=== PATIENT | male | born 1965 | race Caucasian/White ===

== ENCOUNTER 2018-04-05 16:15 | Observation (INO) | payer BC, OTHER ==
[~2018-04-05] VITALS: Ht 182.9 cm; Wt 158.6 kg
[2018-04-05 16:55] LABS: BASOPHILS % (AUTO) 0 % (0-10); EOSINOPHILS # (AUTO) 0.5 10^3/uL (0.0-0.3); EOSINOPHILS % (AUTO) 5 % (0-10); HEMATOCRIT 50 % (40-54); HEMOGLOBIN 16.7 G/DL (13.3-17.7); LYMPHOCYTES # (AUTO) 2.2 X 10^3 (1.0-4.0); LYMPHOCYTES % (AUTO) 26 % (12-44); MEAN CORPUSCULAR HEMOGLOBIN 31 PG (25-34); MEAN CORPUSCULAR HGB CONC 34 G/DL (32-36); MEAN CORPUSCULAR VOLUME 91 FL (80-99); MEAN PLATELET VOLUME 11.3 FL (7.4-10.4); MONOCYTES # (AUTO) 0.7 X 10^3 (0.0-1.0); MONOCYTES % (AUTO) 8 % (0-12); NEUTROPHILS # (AUTO) 5.2 X 10^3 (1.8-7.8); NEUTROPHILS % (AUTO) 61 % (42-75); PLATELET COUNT 250 10^3/uL (130-400); RED BLOOD COUNT 5.46 10^6/uL (4.35-5.85); RED CELL DISTRIBUTION WIDTH 15.3 % (10.0-14.5); WHITE BLOOD COUNT 8.5 10^3/uL (4.3-11.0)
--- NOTE | 2018-04-05 16:55 | ED Cough/URI ---
General Chief Complaint: Respiratory Problems Stated Complaint: LOW OXYGEN Source: patient Exam Limitations: no limitations History of Present Illness Date Seen by Provider: April 05, 2018 Time Seen by Provider: 16:52 Initial Comments To ER per private vehicle from [facility] or with reports of shortness of breath. This is been ongoing for several months, he smokes 3-4 packs of cigarettes per day. 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 Worsening shortness of breath over the past few days. Presented to [facility] where he was found to be 85% on room air. Timing/Duration: constant Severity/Quality: moderate Associated Symptoms: cough, shortness of breath, wheezing Allergies and Home Medications Allergies Coded Allergies: No Known Drug Allergies (Unverified , 04/05/18) Patient Home Medication List Home Medication List Reviewed: Yes Review of Systems Constitutional: see HPI EENTM: see HPI Respiratory: see HPI, cough, short of breath Cardiovascular: see HPI; No chest pain Genitourinary: no symptoms reported Skin: no symptoms reported Psychiatric/Neurological: No Symptoms Reported Past Oeyplbn-Uwplnd-Bjqcqo Hx Patient Social History Recent Foreign Travel: No Contact w/Someone Who Travel: No Physical Exam Vital Signs Vital Signs - First Documented 04/05/18 04/05/18 16:37 17:05 Temp 98.1 Pulse 106 Resp 20 B/P (MAP) 108/79 (89) Pulse Ox 93 O2 Delivery Nasal Cannula O2 Flow Rate 3.00 Capillary Refill : General Appearance: WD/WN, no apparent distress, obese Eyes: Bilateral Eye Normal Inspection, Bilateral Eye PERRL, Bilateral Eye EOMI HEENT: PERRL/EOMI, normal ENT inspection Neck: non-tender, full range of motion Respiratory: no respiratory distress, no accessory muscle use, decreased breath sounds Cardiovascular: regular rate, rhythm, no murmur Gastrointestinal: normal bowel sounds, non tender, soft Extremities: normal range of motion, non-tender Neurologic/Psychiatric: alert, normal mood/affect, oriented x 3 Skin: normal color, warm/dry Progress/Results/Core Measures Suspected Sepsis SIRS Temperature: Pulse: Respiratory Rate: Laboratory Tests 04/05/18 16:30: White Blood Count 8.5 Blood Pressure / Mean: Laboratory Tests 04/05/18 16:30: Creatinine 0.86, Platelet Count 250, Total Bilirubin 0.6 Results/Orders Lab Results Laboratory Tests Test 04/05/18 16:30 Range/Units White Blood Count 8.5 4.3-11.0 10^3/uL Red Blood Count 5.46 4.35-5.85 10^6/uL Hemoglobin 16.7 13.3-17.7 G/DL Hematocrit 50 40-54 % Mean Corpuscular Volume 91 80-99 FL Mean Corpuscular Hemoglobin 31 25-34 PG Mean Corpuscular Hemoglobin Concent 34 32-36 G/DL Red Cell Distribution Width 15.3 H 10.0-14.5 % Platelet Count 250 130-400 10^3/uL Mean Platelet Volume 11.3 H 7.4-10.4 FL Neutrophils (%) (Auto) 61 42-75 % Lymphocytes (%) (Auto) 26 12-44 % Monocytes (%) (Auto) 8 0-12 % Eosinophils (%) (Auto) 5 0-10 % Basophils (%) (Auto) 0 0-10 % Neutrophils # (Auto) 5.2 1.8-7.8 X 10^3 Lymphocytes # (Auto) 2.2 1.0-4.0 X 10^3 Monocytes # (Auto) 0.7 0.0-1.0 X 10^3 Eosinophils # (Auto) 0.5 H 0.0-0.3 10^3/uL Basophils # (Auto) 0.0 0.0-0.1 10^3/uL Sodium Level 139 135-145 MMOL/L Potassium Level 4.4 3.6-5.0 MMOL/L Chloride Level 101 98-107 MMOL/L Carbon Dioxide Level 26 21-32 MMOL/L Anion Gap 12 5-14 MMOL/L Blood Urea Nitrogen 13 7-18 MG/DL Creatinine 0.86 0.60-1.30 MG/DL Estimat Glomerular Filtration Rate > 60 BUN/Creatinine Ratio 15 Glucose Level 123 H 70-105 MG/DL Calcium Level 10.0 8.5-10.1 MG/DL Total Bilirubin 0.6 0.1-1.0 MG/DL Aspartate Amino Transf (AST/SGOT) 19 5-34 U/L Alanine Aminotransferase (ALT/SGPT) 25 0-55 U/L Alkaline Phosphatase 63 40-136 U/L Total Protein 8.1 6.4-8.2 GM/DL Albumin 4.4 3.2-4.5 GM/DL My Orders Orders - ROB SIMS CONCESSION WORKER Cbc With Automated Diff (04/05/18 16:47) Comprehensive Metabolic Panel (04/05/18 16:47) Ua Culture If Indicated (04/05/18 16:47) Iv Heplock-Insert (Order) (04/05/18 16:47) Chest 1 View, Ap/Pa Only (04/05/18 16:47) Ct Chest W (04/05/18 16:47) Albuterol/Ipra Inhalation Soln (Duoneb I (04/05/18 17:00) Svn Small Volume Nebulizer (04/05/18 16:47) Iohexol Injection (Omnipaque 350 Mg/Ml 1 (04/05/18 17:15) Ns (Ivpb) (Sodium Chloride 0.9% Ivpb Bag (04/05/18 17:15) General/Regular (04/05/18 Dinner) Albuterol/Ipra Inhalation Soln (Duoneb I (04/05/18 18:15) Svn Small Volume Nebulizer (04/05/18 18:14) Medications Given in ED Current Medications Medications Dose Ordered Sig/Josue Route Start Time Stop Time Status Last Admin Dose Admin Albuterol/ Ipratropium 3 ml ONCE ONCE INH 04/05/18 17:00 04/05/18 17:01 DC 04/05/18 17:01 3 ML Albuterol/ Ipratropium 3 ml ONCE ONCE INH 04/05/18 18:15 04/05/18 18:16 DC 04/05/18 18:31 3 ML Iohexol 75 ml ONCE ONCE IV 04/05/18 17:15 04/05/18 17:20 DC 04/05/18 17:32 75 ML Sodium Chloride 100 ml ONCE ONCE IV 04/05/18 17:15 04/05/18 17:20 DC 04/05/18 17:32 80 ML Vital Signs/I&O 04/05/18 04/05/18 16:37 17:05 Temp 98.1 Pulse 106 Resp 20 B/P (MAP) 108/79 (89) Pulse Ox 93 93 O2 Delivery Nasal Cannula O2 Flow Rate 3.00 Capillary Refill : Departure Communication (Admissions) Time/Spoke to Admitting Phy: 18:[address] Coyle. We'll admit, steroids, breathing treatments, home O2 qualification study 1835- oxygen turned off, saturation dropped to 86%. Oxygen was turned back on. He is afebrile without white count or left shift. We'll treat for a COPD exacerbation. Impression Primary Impression: COPD exacerbation Disposition: HOME, SELF-CARE Condition: Stable Admissions Decision to Admit Reason: Admit from ER (General) Decision to Admit/Date: April 05, 2018 Time/Decision to Admit Time: 18:38 Departure-Patient Inst. Referrals: NO,LOCAL PHYSICIAN (PCP) Primary Care Physician ROB SIMS APRN April 05, 2018 16:55
[2018-04-05] MEDS ORDERED: RT-ALBUTEROL/IPRATROPIUM 3 ML (DUONEB) VIAL INH ONE ×2 (17:00→18:15)
[2018-04-05 17:09] LABS: ALANINE AMINOTRANSFERASE 25 U/L (0-55); ALBUMIN 4.4 GM/DL (3.2-4.5); ALKALINE PHOSPHATASE 63 U/L (40-136); BILIRUBIN,TOTAL 0.6 MG/DL (0.1-1.0); BUN/CREATININE RATIO 15; CARBON DIOXIDE 26 MMOL/L (21-32); CHLORIDE 101 MMOL/L (98-107); CREATININE SERUM 0.86 MG/DL (0.60-1.30); GFR ESTIMATED > 60; GLUCOSE 123 MG/DL (70-105); POTASSIUM 4.4 MMOL/L (3.6-5.0); SODIUM 139 MMOL/L (135-145); TOTAL PROTEIN 8.1 GM/DL (6.4-8.2)
[2018-04-05] MEDS ORDERED: NS 100 ML (IVPB) BAG IV ONE (17:15)
[2018-04-05] MEDS ORDERED: IOHEXOL 350 MG/ML 100 ML (OMNIPAQUE 350) VIAL IV ONE (17:15)
--- NOTE | 2018-04-05 17:29 | Diagnostic Imaging Report ---
INDICATION: Short of breath. FINDINGS: Portable chest shows the heart size and vascularity to be upper normal. The lungs are clear other than discoid atelectasis on the right. There is no effusion or pneumothorax. IMPRESSION: Right perihilar discoid atelectasis. Dictated by: Dictated on workstation # [id number]
--- NOTE | 2018-04-05 17:44 | Diagnostic Imaging Report ---
PROCEDURE: CT chest with contrast only. TECHNIQUE: Multiple contiguous axial images were obtained through the chest after administration of intravenous contrast. INDICATION: Short of air. FINDINGS: There is right perihilar discoid atelectasis. There is a 1 cm calcified nodule in the right lung consistent with old granulomatous disease. No suspicious mass or infiltrate is seen. There is no effusion or pneumothorax. There is no mediastinal mass or hemorrhage. There may be a small hiatal hernia present. There is no acute bony abnormality. IMPRESSION: Right perihilar discoid atelectasis. Dictated by: Dictated on workstation # [id number]
[2018-04-05 20:05] VITALS: BP 167/84
[2018-04-05 20:10] LABS: BILIRUBIN,URINE NEGATIVE (NEGATIVE); CLARITY,URINE CLEAR; COLOR,URINE YELLOW; GLUCOSE, URINE (UA) NEGATIVE (NEGATIVE); KETONES,URINE NEGATIVE (NEGATIVE); LEUKOCYTE ESTERASE ,URINE NEGATIVE (NEGATIVE); NITRITE,URINE NEGATIVE (NEGATIVE); PH,URINE 5 (5-9); PROTEIN,URINE 1+ (NEGATIVE); UROBILINOGEN,URINE NORMAL (NORMAL)
[2018-04-05 20:16] LABS: BACTERIA,URINE NEGATIVE /HPF; SQUAMOUS EPITHELIAL CELL,UR RARE /HPF
[2018-04-05] MEDS ORDERED: CATHETER FLUSH 10 ML SYR IV PRN (20:30)
[2018-04-05 21:34] VITALS: BP 108/79
[2018-04-05] MEDS ORDERED: RT-ALBUTEROL/IPRATROPIUM 3 ML (DUONEB) VIAL INH PRN (21:45)
[2018-04-05] MEDS: NICOTINE 21 MG (NICODERM) PATCH TD SCH (21:52)
[2018-04-05] MEDS: methylPREDNISolone 125 MG (Solu-MEDROL) VIAL IV SCH (21:52)
[2018-04-05] MEDS: CATHETER FLUSH 10 ML SYR IV SCH (21:52)
[2018-04-05] MEDS ORDERED: RT-ALBUTEROL/IPRATROPIUM 3 ML (DUONEB) VIAL ONE (22:44)
[2018-04-05] MEDS: RT-ALBUTEROL/IPRATROPIUM 3 ML (DUONEB) VIAL INH SCH (22:57)
[2018-04-06] VITALS: BP 131/66
[2018-04-06] MEDS: RT-ALBUTEROL/IPRATROPIUM 3 ML (DUONEB) VIAL INH SCH ×6 (01:44→22:09)
[2018-04-06 04:00] VITALS: BP 145/68
[2018-04-06] MEDS: methylPREDNISolone 125 MG (Solu-MEDROL) VIAL IV SCH (05:42)
[2018-04-06] MEDS: CATHETER FLUSH 10 ML SYR IV SCH ×3 (05:43→21:46)
[2018-04-06 08:00] VITALS: BP 141/85
--- NOTE | 2018-04-06 09:00 | Pulmonary Consultation ---
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 He was found to have Sp02 of 85% on RA. His last Sp02 was 91% on 3 NC. He states that he is now dizzy and appears to be hyperventilating. Pt is not known to any equalizer operator and does not have a recent PFT. He has never has PSG and has no known BLANK. He has only been coughing up white sputum. No f/NS/C. Allergies and Home Medications Allergies Coded Allergies: No Known Drug Allergies (Unverified , 04/05/18) Home Medications Amlodipine Besylate 5 Mg Tablet, 5 MG PO DAILY Prescribed by: ALAINA TREVIÑO on 04/07/18 1010 Aspirin/Acetaminophen/Caffeine 1 Each Tablet, 2 TAB PO DAILY, (Reported) Fluticasone Propionate 16 Gm [place].susp, 2 SPRAY NS DAILY Prescribed by: ALAINA TREVIÑO on 04/07/18 1010 Fluticasone/Salmeterol 12 Gm Hfa.aer.ad, 2 PUFF IH BID@08,20 Prescribed by: ALAINA TREVIÑO on 04/07/18 1010 Ipratropium/Albuterol Sulfate 3 Ml Ampul.neb, 3 ML INH RTQ4HR Prescribed by: ALAINA TREVIÑO on 04/07/18 1010 Loratadine 10 Mg Tablet, 10 MG PO DAILY Prescribed by: ALAINA TREVIÑO on 04/07/18 1010 Montelukast Sodium 10 Mg Tablet, 10 MG PO HS Prescribed by: ALAINA TREVIÑO on 04/07/18 1010 Nicotine 1 Each Patch.td24, 21 MG TD DAILY Prescribed by: ALAINA TREVIÑO on 04/07/18 1010 Nystatin 15 Gm Cream..g., 0 GM TP TID Prescribed by: ALAINA TREVIÑO on 04/07/18 1010 Prednisone 10 Mg Tab.ds.pk, 10 MG PO DAILY Take 6 tabs(60mg)daily,decrease by 1 tab(10MG)daily. Prescribed by: ALAINA TREVIÑO on 04/07/18 1010 Varenicline Tartrate 0.5 Mg Tablet, 0.5 MG PO DAILY 1 po daily for days 1-3 then 1 po BID for days 4-7 then change to 1mg BID Prescribed by: ALAINA TREVIÑO on 04/07/18 1010 Varenicline Tartrate 1 Each Tab.ds.pk, 1 EACH PO BID Prescribed by: ALAINA TREVIÑO on 04/07/18 1010 Past Xiegheo-Ingzcb-Vjtfky Hx Patient Social History Alcohol Use: Denies Use Recreational Drug Use: No Smoking Status: Current Everyday Smoker Type Used: Cigarettes Recent Foreign Travel: No Contact w/Someone Who Travel: No Recent Infectious Disease Expo: No Recent Hopitalizations: No Seasonal Allergies Seasonal Allergies: No Past Medical History Surgeries: Yes Respiratory: Yes COPD Currently Using CPAP: No Currently Using BIPAP: No Cardiac: Yes (?murmur) Neurological: No Sexually Transmitted Disease: No HIV/AIDS: No Genitourinary: No Gastrointestinal: No 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 Endocrine: No HEENT: No Cancer: No Psychosocial: No Integumentary: No Blood Disorders: No Review of Systems Time Seen by Provider: 04:40 Constitutional: Sweats, Weakness; No: Fever, Chills, Malaise, Other Eyes: No: Pain, Vision change, Conjunctivae inflammation, Eyelid inflammation, Other, Redness ENT: Nose congestion; No: Ear pain, Ear discharge, Nose pain, Nose discharge, Mouth pain, Mouth swelling, Throat pain, Throat swelling, Other Respiratory: Cough, Dry, Shortness of breath, SOB with excertion, Wheezing; No : Hemoptysis, Pleuritic Pain, Sputum Cardiovascular: Palpitations, Orthopnea, Paroxysmal Noc. Dyspnea, Lt Headedness Gastrointestinal: Constipation; No: Nausea, Vomiting, Abdominal Pain, Diarrhea , Melena, Hematochezia, Other Genitourinary: No Dysuria, No Frequency, No Incontinence, No Hematuria, No Retention, No Other Musculoskeletal: back pain; No: other, neck pain, shoulder pain, arm pain, hand pain, leg pain, foot pain Neurological: Weakness Exam Exam Vital Signs Date Time Temp Pulse Resp B/P (MAP) Pulse Ox O2 Delivery O2 Flow Rate FiO2 04/06/18 08:00 98.2 109 22 141/85 (103) 91 Nasal Cannula 2.00 04/06/18 07:00 124 04/06/18 06:39 90 Nasal Cannula 3.00 04/06/18 04:00 97.8 95 17 145/68 (93) 91 Nasal Cannula 2.00 04/06/18 01:45 88 Room Air 04/06/18 00:00 96.2 96 18 131/66 (87) 90 Nasal Cannula 2.00 04/05/18 23:00 92 04/05/18 22:57 89 Nasal Cannula 1.00 04/05/18 21:34 90 89 04/05/18 20:05 97.0 94 20 167/84 (111) 92 Nasal Cannula 2.00 04/05/18 20:03 Nasal Cannula 2.00 04/05/18 19:58 92 20 118/92 89 Room Air 2.00 04/05/18 18:31 89 Room Air 04/05/18 17:05 93 Nasal Cannula 3.00 04/05/18 16:37 98.1 106 20 108/79 (89) 93 I & O 04/06/18 07:00 Intake Total 500 ml Output Total 1000 ml Balance -500 ml General Appearance: Anxious, Mild Distress, Obese HEENT: PERRL/EOMI, Pharynx Normal Neck: Full Range of Motion, Normal Inspection, Non Tender, Supple Respiratory: Accessory Muscle Use, Crackles, Decreased Breath Sounds Cardiovascular: Regular Rate, Rhythm, No Edema, No Gallop Capillary Refill: Less Than 3 Seconds Gastrointestinal: normal bowel sounds, non tender, soft Extremity: Normal Capillary Refill, Normal Inspection, Non Tender, No Calf Tenderness Neurologic/Psychiatric: Alert, Oriented x3 Skin: Normal Color, Warm/Dry Lymphatic: No Adenopathy Results Lab Laboratory Tests 04/05/18 16:30 Assessment/Plan Assessment/Plan Acute on chronic respiratory failure -Pt would benefit from vent to mask COPDAE -Change solumedrol to prednisone 40mg daily SVNS, Advair -Consult SW -Check ABG R/o carbonmonoxide poisoning -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
[2018-04-06] MEDS ORDERED: ASPI-789 PO (09:03)
[2018-04-06] MEDS: NICOTINE 21 MG (NICODERM) PATCH TD SCH ×2 (09:05→20:17)
[2018-04-06] MEDS: NICOTINE PATCH REMOVAL TP SCH (09:05)
--- NOTE | 2018-04-06 09:21 | History & Physical-Hospitalist ---
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 He doesn't take any medications and he doesn't like doctors. I spoke with Dr. Mccray who has seen him in consultation will order an ABG to evaluate for obesity hypoventilation syndrome and we'll maintain oxygen and do a formal home O2 evaluation and preparation for discharge tomorrow. IV steroids he reports are not really helping him much and he reports that the nebulizer treatments are really helping him. Smoking cessation was discussed. Elevated blood pressure was noted so started treatment with amlodipine 5 mg daily. He denies any chest pain at this current time and no fever. He's been smoking even more recently due to marriage stress and separation and impending divorce. He also reports that he thinks there is exhaust entering his truck so will check carboxyhemoglobin. Date Seen 04/06/18 Time Seen by Provider: 08:30 Attending Physician Ginny Coyle DO PCP No,Local Physician Referring Physician Date of Admission April 05, 2018 at 18:50 Home Medications & Allergies Home Medications Reviewed patient Home Medication Reconciliation performed by pharmacy medication reconciliations conservation technician and/or nursing. Patients Allergies have been reviewed. 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) Alcohol Use: Denies Use Recreational Drug Use: No Smoking Status: Current Everyday Smoker Type Used: Cigarettes Physical Abuse Screen: No Sexual Abuse: No Recent Foreign Travel: No Contact w/other who traveled: No Recent Hopitalizations: No Recent Infectious Disease Expo: No Seasonal Allergies Seasonal Allergies: No Past Medical History Currently Using CPAP: No Currently Using BIPAP: No Sexually Transmitted Disease: No HIV/AIDS: No Musculoskeletal: Amputee History of Blood Disorders: No Family History Hypertension Review of Systems Constitutional: see HPI, dizziness EENTM: no symptoms reported Respiratory: dyspnea on exertion Cardiovascular: no symptoms reported Gastrointestinal: no symptoms reported Genitourinary: no symptoms reported Musculoskeletal: no symptoms reported Skin: no symptoms reported Psychiatric/Neurological: No Symptoms Reported All Other Systems Reviewed Negative Unless Noted: Yes Physical Exam Physical Exam Vital Signs Vital Signs - First Documented 04/05/18 04/05/18 16:37 17:05 Temp 98.1 Pulse 106 Resp 20 B/P (MAP) 108/79 (89) Pulse Ox 93 O2 Delivery Nasal Cannula O2 Flow Rate 3.00 Capillary Refill : Less Than 3 Seconds General Appearance: No Apparent Distress, WD/WN, Chronically ill, Obese Eyes: Bilateral Eye Normal Inspection, Bilateral Eye PERRL HEENT: PERRL/EOMI, Normal ENT Inspection, Pharynx Normal Neck: Full Range of Motion, Normal Inspection, Non Tender, Supple, Carotid Bruit Respiratory: Chest Non Tender, No Accessory Muscle Use, No Respiratory Distress , Decreased Breath Sounds, Wheezing Cardiovascular: Regular Rate, Rhythm, No Edema, No Gallop, No JVD, No Murmur, Normal Peripheral Pulses Gastrointestinal: Normal Bowel Sounds, No Organomegaly, No Pulsatile Mass, Non Tender, Soft Back: Normal Inspection, No CVA Tenderness, No Vertebral Tenderness Extremity: Normal Capillary Refill, Normal Inspection, Normal Range of Motion, Non Tender, No Calf Tenderness, No Pedal Edema Neurologic/Psychiatric: Alert, Oriented x3, No Motor/Sensory Deficits, Normal Mood/Affect Skin: Normal Color, Warm/Dry Lymphatic: No Adenopathy Results Results/Procedures Labs Laboratory Tests 04/05/18 16:30 Patient resulted labs reviewed. Assessment/Plan Admission Diagnosis Assessment: AECOPD Plan: IV steroids Nebs Home O2 evaluation Check CO level Nebs Sleep study arrangements Add [facility] Admission Status: Observation Diagnosis/Problems Diagnosis/Problems (1) COPD exacerbation Status: Acute Assessment & Plan: IV steroids and O2 and check ABG (2) Carbon monoxide exposure Status: Acute Assessment & Plan: Check carboxyhemoglobin (3) Obesity hypoventilation syndrome Status: Chronic Assessment & Plan: Check ABG for lilu-nr-rbqw arrangements (4) Smoker Status: Chronic Assessment & Plan: Smoking cessation discussed (5) Hypertension Status: Chronic Qualifiers: Hypertension type: essential hypertension Qualified Codes: I10 - Essential (primary) hypertension (6) Anxiety Status: Chronic Clinical Quality Measures DVT/VTE Risk/Contraindication: Risk Factor Score Per Nursin RFS Level Per Nursing on Admit: 3=High GINNY COYLE DO April 06, 2018 09:21
[2018-04-06] MEDS ORDERED: amLODIPine 5 MG (NORVASC) TAB PO NR (09:30)
[2018-04-06 10:55] LABS: ABG BASE EXCESS 5.8 MMOL/L (-2.5-2.5); ABG OXYGEN SATURATION 92 % (94-100); ABG PCO2 57 MMHG (35-45); ABG PH 7.36 (7.37-7.43); ABG PO2 64 MMHG (79-93); ABG TCO2 32.9 MMOL/L (21.0-31.0)
[2018-04-06 10:56] LABS: PATIENT TEMP 98.2
[2018-04-06 12:00] VITALS: BP 141/74
[2018-04-06 16:00] VITALS: BP 121/79
[2018-04-06] MEDS: RT-ADVAIR HFA 115/21 MCG PER PUFF IH SCH (18:14)
[2018-04-06] MEDS: NYSTATIN CREAM (MYCOSTATIN) 30 GM TUBE TP SCH (20:16)
[2018-04-06] MEDS ORDERED: MONTELUKAST 10 MG (SINGULAIR) TAB PO SCH (21:00)
[2018-04-07] VITALS: BP 113/65
[2018-04-07] MEDS: NICOTINE 21 MG (NICODERM) PATCH TD SCH ×2 (00:38→08:13)
[2018-04-07] MEDS: RT-ALBUTEROL/IPRATROPIUM 3 ML (DUONEB) VIAL INH SCH ×3 (01:56→11:12)
--- NOTE | 2018-04-07 04:50 | Pulmonary Progress Note ---
Subjective Time Seen by Provider: 04:57 Subjective/Events-last exam SOB and hypoxia Exam Exam Vital Signs Date Time Temp Pulse Resp B/P (MAP) Pulse Ox O2 Delivery O2 Flow Rate FiO2 04/07/18 00:00 98.9 69 20 113/65 (81) 93 Nasal Cannula 6.00 04/06/18 22:11 93 Nasal Cannula 6.00 04/06/18 20:00 High Flow N/C 6.00 04/06/18 18:12 92 Nasal Cannula 6.00 04/06/18 16:00 98.8 109 20 121/79 (93) 90 Nasal Cannula 2.00 04/06/18 14:28 90 Nasal Cannula 3.00 04/06/18 13:00 112 04/06/18 12:00 98.5 100 20 141/74 (96) 92 Nasal Cannula 2.00 04/06/18 11:28 91 3.00 04/06/18 10:50 90 Nasal Cannula 3.00 04/06/18 08:00 98.2 109 22 141/85 (103) 91 Nasal Cannula 2.00 04/06/18 07:00 124 04/06/18 06:39 90 Nasal Cannula 3.00 I & O 04/07/18 07:00 Intake Total 2045 ml Balance 2045 ml General Appearance: Anxious, Mild Distress, Obese HEENT: PERRL/EOMI, Pharynx Normal Neck: Full Range of Motion, Normal Inspection, Non Tender, Supple Respiratory: Accessory Muscle Use, Crackles, Decreased Breath Sounds Cardiovascular: Regular Rate, Rhythm, No Edema, No Gallop Capillary Refill: Less Than 3 Seconds Gastrointestinal: normal bowel sounds, non tender, soft Extremity: Normal Capillary Refill, Normal Inspection, Non Tender, No Calf Tenderness Neurologic/Psychiatric: Alert, Oriented x3 Skin: Normal Color, Warm/Dry Lymphatic: No Adenopathy Results Lab Laboratory Tests 04/05/18 16:30 Assessment/Plan Assessment/Plan Acute on chronic respiratory failure with hypoxia -CT with contrast does not show PE however this is not a CTA and is not a diagnostic study to R/O PE -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 -Check BNP and troponin - if these are elevated it could be secondary to acute PE. -echocardiogram is ordered results pending -Pt would benefit from vent to mask COPDAE - prednisone 40mg daily SVNS, Advair -Consult SW -ABG shows c02 57 -PT needs home 02 and home vent to mask. I will notify Via April ROSS. 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 Repeat Labs and CXR this AM . I will arrange f/u with me in office in 2-3 wks. 233 SHIVANI DOUGLAS DO April 07, 2018 04:50
[2018-04-07 05:33] LABS: BASOPHILS % (AUTO) 0 % (0-10); EOSINOPHILS % (AUTO) 0 % (0-10); HEMATOCRIT 49 % (40-54); MEAN CORPUSCULAR HEMOGLOBIN 30 PG (25-34); MEAN CORPUSCULAR HGB CONC 33 G/DL (32-36); MEAN CORPUSCULAR VOLUME 92 FL (80-99); MEAN PLATELET VOLUME 11.1 FL (7.4-10.4); MONOCYTES # (AUTO) 1.1 X 10^3 (0.0-1.0); NEUTROPHILS # (AUTO) 11.4 X 10^3 (1.8-7.8); NEUTROPHILS % (AUTO) 85 % (42-75); PLATELET COUNT 235 10^3/uL (130-400); RED BLOOD COUNT 5.31 10^6/uL (4.35-5.85); RED CELL DISTRIBUTION WIDTH 15.3 % (10.0-14.5); WHITE BLOOD COUNT 13.5 10^3/uL (4.3-11.0)
[2018-04-07 05:35] LABS: LYMPHOCYTES % (AUTO) 8 % (12-44); MONOCYTES % (AUTO) 7 % (0-12)
[2018-04-07 06:02] LABS: ALANINE AMINOTRANSFERASE 22 U/L (0-55); ALBUMIN 4.1 GM/DL (3.2-4.5); ALKALINE PHOSPHATASE 55 U/L (40-136); BILIRUBIN,TOTAL 0.3 MG/DL (0.1-1.0); BUN/CREATININE RATIO 19; CALCIUM 9.5 MG/DL (8.5-10.1); CARBON DIOXIDE 27 MMOL/L (21-32); CHLORIDE 102 MMOL/L (98-107); CHOLESTEROL 125 MG/DL (< 200); CREATININE SERUM 0.78 MG/DL (0.60-1.30); GFR ESTIMATED > 60; GLUCOSE 169 MG/DL (70-105); HDL CHOLESTEROL 48 MG/DL (40-60); MAGNESIUM 2.2 MG/DL (1.8-2.4); PHOSPHORUS 4.5 MG/DL (2.3-4.7); POTASSIUM 5.2 MMOL/L (3.6-5.0); SODIUM 140 MMOL/L (135-145); TOTAL PROTEIN 7.1 GM/DL (6.4-8.2); TRIGLYCERIDES 105 MG/DL (<150); VLDL CHOLESTEROL 21 MG/DL (5-40)
[2018-04-07] MEDS: CATHETER FLUSH 10 ML SYR IV SCH (06:04)
[2018-04-07] MEDS ORDERED: predniSONE 20 MG TAB PO SCH (07:00)
--- NOTE | 2018-04-07 07:23 | Diagnostic Imaging Report ---
INDICATION: Exacerbation, COPD Portable chest 5:47 AM Heart size and pulmonary vascularity are normal. Lungs are clear. There are no effusions or pneumothoraces. IMPRESSION: Negative chest. Dictated by: Dictated on workstation # [id number]
[2018-04-07] MEDS: RT-ADVAIR HFA 115/21 MCG PER PUFF IH SCH (07:38)
[2018-04-07 08:00] VITALS: BP 140/78
[2018-04-07] MEDS ORDERED: ASPIRIN 325 MG (5 GR) TABLET PO SCH (08:00)
[2018-04-07] MEDS ORDERED: ACETAMINOPHEN 500 MG TAB (TYLENOL) PO SCH (08:00)
[2018-04-07] MEDS: NYSTATIN CREAM (MYCOSTATIN) 30 GM TUBE TP SCH (08:14)
[2018-04-07] MEDS: NICOTINE PATCH REMOVAL TP SCH (08:15)
[2018-04-07] MEDS ORDERED: amLODIPine 5 MG (NORVASC) TAB PO SCH (09:00)
[2018-04-07] MEDS ORDERED: FLUTICASONE NASAL SPRAY (FLONASE) 16 GM BTL NS SCH (09:00)
[2018-04-07] MEDS ORDERED: LORATADINE (CLARITIN) 10 MG TAB PO SCH (09:00)
[2018-04-07] MEDS ORDERED: NON-FORMULARY MEDICATION 1 EA EA (Aspirin/Acetaminophen/Caffeine (Excedrin Migraine Caplet PO SCH (09:00)
--- NOTE | 2018-04-07 10:01 | Diagnostic Imaging Report ---
INDICATION: Shortness of breath. Please give technique for bilateral lower extremity venous Doppler. There is no evidence of a right or left lower extremity DVT. Both lower extremity deep venous systems demonstrate normal compressibility with normal response to augmentation and Valsalva. No fluid collection or mass is detected. IMPRESSION: No evidence of right or left lower extremity DVT. Dictated by: Dictated on workstation # [id number]
[2018-04-07] MEDS ORDERED: VARE1TAB21 PO (10:10)
[2018-04-07] MEDS ORDERED: VARE0.5T PO (10:10)
[2018-04-07] MEDS ORDERED: NYST15CR TP (10:10)
[2018-04-07] MEDS ORDERED: LORA10TA7 PO (10:10)
[2018-04-07] MEDS ORDERED: FLUT16SP22 NS (10:10)
[2018-04-07] MEDS ORDERED: MONT10TA24 PO (10:10)
[2018-04-07] MEDS ORDERED: NICO-588 TD (10:10)
[2018-04-07] MEDS ORDERED: PRED10TA22 PO (10:10)
[2018-04-07] MEDS ORDERED: AMLO5TAB2 PO (10:10)
[2018-04-07] MEDS ORDERED: IPRA3AMP INH (10:10)
[2018-04-07] MEDS ORDERED: FLUT12AE4 IH (10:10)
--- NOTE | 2018-04-07 10:12 | Discharge Summary-Hospitalist ---
Diagnosis/Chief Complaint Date of Admission April 05, 2018 at 18:50 Date of Discharge Discharge Date: April 07, 2018 Admission Diagnosis Assessment: AECOPD Plan: IV steroids Nebs Home O2 evaluation Check CO level Nebs Sleep study arrangements Add Norvasc Discharge Diagnosis (1) COPD exacerbation Status: Acute Assessment & Plan: IV steroids and O2 and check ABG (2) Carbon monoxide exposure Status: Resolved Assessment & Plan: Check carboxyhemoglobin (3) Obesity hypoventilation syndrome Status: Chronic Assessment & Plan: Check ABG for [id number] arrangements (4) Smoker Status: Chronic Assessment & Plan: Smoking cessation discussed (5) Hypertension Status: Chronic (6) Anxiety Status: Chronic Discharge Summary Discharge Physical Exam Allergies: Coded Allergies: No Known Drug Allergies (Unverified , 04/05/18) Vitals & I&Os Vital Signs Date Time Temp Pulse Resp B/P (MAP) Pulse Ox O2 Delivery O2 Flow Rate FiO2 04/07/18 11:12 92 Nasal Cannula 6.00 04/07/18 08:00 99.1 107 20 140/78 (98) General Appearance: Alert, Oriented X3, Cooperative Respiratory: Clear to Auscultation, Normal Air Movement Neuro: Normal Gait, Normal Speech, Strength at 5/5 X4 Ext Psych/Mental Status: Mental Status NL, Mood NL Hospital Course Hospital course: Patient was admitted due to severe hypoxia baseline but had shortness of breath when he presented to [facility] so he was sent to the ER found to have no infiltrate on chest x-ray and placed on IV steroids oxygen supplementation and consulted pulmonology. 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 Smoking cessation was counseled and he was interested in Chantix and nicotine patches which were both sent to [facility] pharmacy. He required vent to mask support ordered by Dr. Mccray and I ordered 3 L of continuous oxygen in addition to nebulizer machine and all meds including antihypertensive Norvasc to [facility] pharmacy. He will have close follow-up [facility] in order to support him during smoking cessation process. Labs (last 24 hrs) Laboratory Tests 04/06/18 18:23: 04/07/18 05:21: White Blood Count 13.5H, Red Blood Count 5.31, Hemoglobin 16.0, Hematocrit 49, Mean Corpuscular Volume 92, Mean Corpuscular Hemoglobin 30, Mean Corpuscular Hemoglobin Concent 33, Red Cell Distribution Width 15.3H, Platelet Count 235, Mean Platelet Volume 11.1H, Neutrophils (%) (Auto) 85H, Lymphocytes (%) (Auto) 8L, Monocytes (%) (Auto) 7, Eosinophils (%) (Auto) 0, Basophils (%) (Auto) 0, Neutrophils # (Auto) 11.4H, Lymphocytes # (Auto) 1.0, Monocytes # (Auto) 1.1H, Eosinophils # (Auto) 0.0, Basophils # (Auto) 0.0, D-Dimer 0.27, Sodium Level 140 , Potassium Level 5.2H, Chloride Level 102, Carbon Dioxide Level 27, Anion Gap 11, Blood Urea Nitrogen 15, Creatinine 0.78, Estimat Glomerular Filtration Rate > 60, BUN/Creatinine Ratio 19, Glucose Level 169H, Calcium Level 9.5, Phosphorus Level 4.5, Magnesium Level 2.2, Total Bilirubin 0.3, Aspartate Amino Transf (AST/SGOT) 10, Alanine Aminotransferase (ALT/SGPT) 22, Alkaline Phosphatase 55, Troponin I < 0.30, B-Type Natriuretic Peptide 35.2, Total Protein 7.1, Albumin 4.1, Triglycerides Level 105, Cholesterol Level 125, LDL Cholesterol Direct 45, VLDL Cholesterol 21, HDL Cholesterol 48 Patient resulted labs reviewed. Pending Labs Laboratory Tests 04/07/18 05:21: White Blood Count 13.5, Red Blood Count 5.31, Hemoglobin 16.0, Hematocrit 49, Mean Corpuscular Volume 92, Mean Corpuscular Hemoglobin 30, Mean Corpuscular Hemoglobin Concent 33, Red Cell Distribution Width 15.3, Platelet Count 235, Mean Platelet Volume 11.1, Neutrophils (%) (Auto) 85, Lymphocytes (%) (Auto) 8, Monocytes (%) (Auto) 7, Eosinophils (%) (Auto) 0, Basophils (%) (Auto) 0, Neutrophils # (Auto) 11.4, Lymphocytes # (Auto) 1.0, Monocytes # (Auto) 1.1, Eosinophils # (Auto) 0.0, Basophils # (Auto) 0.0, D-Dimer 0.27, Sodium Level 140 , Potassium Level 5.2, Chloride Level 102, Carbon Dioxide Level 27, Anion Gap 11 , Blood Urea Nitrogen 15, Creatinine 0.78, Estimat Glomerular Filtration Rate > 60, BUN/Creatinine Ratio 19, Glucose Level 169, Calcium Level 9.5, Phosphorus Level 4.5, Magnesium Level 2.2, Total Bilirubin 0.3, Aspartate Amino Transf (AST /SGOT) 10, Alanine Aminotransferase (ALT/SGPT) 22, Alkaline Phosphatase 55, Troponin I < 0.30, B-Type Natriuretic Peptide 35.2, Total Protein 7.1, Albumin 4.1, Triglycerides Level 105, Cholesterol Level 125, LDL Cholesterol Direct 45, VLDL Cholesterol 21, HDL Cholesterol 48 Discussion & Recommendations Discharge Planning: <30 minutes discharge planning Discharge Home Medications: Active Scripts Active Chantix (Varenicline Tartrate) 1 Each Tab.ds.pk 1 Each PO BID Chantix (Varenicline Tartrate) 0.5 Mg Tablet 0.5 Mg PO DAILY 1 po daily for days 1-3 then 1 po BID for days 4-7 then change to 1mg BID Prednisone 10 Mg Tab.ds.pk 10 Mg PO DAILY Take 6 tabs(60mg)daily,decrease by 1 tab(10MG)daily. Nystatin 15 Gm Cream..g. 0 Gm TP TID Fluticasone Propionate 16 Gm [place].susp 2 [place] NS DAILY Montelukast Sodium 10 Mg Tablet 10 Mg PO HS Advair Hfa 115-21 Mcg Inhaler (Fluticasone/Salmeterol) 12 Gm Hfa.aer.ad 2 Puff IH BID@08,20 Amlodipine Besylate 5 Mg Tablet 5 Mg PO DAILY Nicotine Patch (Nicotine) 1 Each Patch.td24 21 Mg TD DAILY Iprat-Albut 0.5-3(2.5) mg/3 ml (Ipratropium/Albuterol Sulfate) 3 Ml Ampul.neb 3 Ml INH RTQ4HR Loratadine 10 Mg Tablet 10 Mg PO DAILY Reported Excedrin Migraine Caplet (Aspirin/Acetaminophen/Caffeine) 1 Each Tablet 2 Tab PO DAILY Instructions to patient/family Please see electronic discharge instructions given to patient. Clinical Quality Measures DVT/VTE Risk/Contraindication: Risk Factor Score Per Nursin RFS Level Per Nursing on Admit: 3=High Problem Qualifiers (1) Hypertension: Hypertension type: essential hypertension Qualified Codes: I10 - Essential ( primary) hypertension ALAINA TREVIÑO DO April 07, 2018 10:12
[2018-04-07 13:53] VITALS: BP 140/78
== END 2018-04-07 10:10 | disposition home or self-care (01) ==
LOC: ER 16:18 → UNDOADMOB 18:50 → 4TH 18:50 → UNDODISOB 04-07 13:58
PROVIDERS: ADMIT Internal Medicine; ATTEND Internal Medicine
DX: J44.1 Chronic obstructive pulmonary disease with (acute) exacerbation (principal); J96.21 Acute and chronic respiratory failure with hypoxia; E66.2 Morbid (severe) obesity with alveolar hypoventilation; F17.210 Nicotine dependence, cigarettes, uncomplicated; I10 Essential (primary) hypertension; F41.9 Anxiety disorder, unspecified; Z77.098 Contact with and (suspected) exposure to other hazardous, chiefly nonmedicinal, chemicals; J30.2 Other seasonal allergic rhinitis; R42 Dizziness and giddiness; Z68.42 Body mass index [BMI] 45.0-49.9, adult
CPT/HCPCS: 36415; 36600; 71045; 71260; 80053; 80061; 81000; 82375; 82805; 83036; 83735; 83880; 84100; 84484; 85025; 85379; 93306; 93970; 94640; 94664; 94760; 94761; G0378